=== PATIENT | female | born 1990 | race Hispanic/Latino ===

== ENCOUNTER 2017-05-10 15:24 | Emergency (ER) | payer OTHER ==
[2017-05-10 15:31] VITALS: BP 130/84
[2017-05-10] MEDS ORDERED: FLEXERIL PO ONE (15:59)
[2017-05-10] MEDS ORDERED: TORADOL IM ONE (15:59)
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
--- NOTE | 2017-05-10 17:16 | XRay Report ---
FINAL REPORT PROCEDURE: Left humerus. TECHNIQUE: AP and lateral views. HISTORY: Shoulder and arm pain. COMPARISON: No prior studies are available for comparison. FINDINGS: The bones appear intact without fracture or dislocation. The joint spaces appear normal. There is a linear foreign body that appears to be in the anteromedial soft tissues of the upper arm. This is located 6.6 centimeters above the elbow joint. This foreign body measures 4.2 centimeters in length by 1.9 millimeters in width. It could represent a catheter fragment. Clinical correlation is recommended. IMPRESSION: Normal appearing bones. Probable catheter fragment foreign body in the upper arm as described.
== END 2017-05-10 17:46 | disposition home or self-care (01) ==
LOC: ED 15:24
DX: S16.1XXA Strain of muscle, fascia and tendon at neck level, initial encounter (principal); M25.512 Pain in left shoulder; M79.622 Pain in left upper arm; F17.200 Nicotine dependence, unspecified, uncomplicated; Z95.818 Presence of other cardiac implants and grafts; Z90.49 Acquired absence of other specified parts of digestive tract; V43.62XA Car passenger injured in collision with other type car in traffic accident, initial encounter; Y93.89 Activity, other specified; Y99.8 Other external cause status; Y92.410 Unspecified street and highway as the place of occurrence of the external cause
CPT/HCPCS: 73060; 96372; 99284; J1885

== ENCOUNTER 2017-06-14 08:06 | Emergency (ER) | payer MEDICAID ==
[2017-06-14 08:10] VITALS: BP 115/81
[2017-06-14 08:48] LABS: Basophils % (Auto) 0.2 % (0.0-1.8); Eosinophils # (Auto) 0.1 K/mm3 (0.0-0.4); Eosinophils % (Auto) 0.4 % (0.0-4.3); Hematocrit 44.9 % (30.3-42.9); Hemoglobin 14.9 gm/dl (10.1-14.3); Lymphocytes # (Auto) 0.7 K/mm3 (1.2-5.4); Lymphocytes % (Auto) 5.2 % (13.4-35.0); Mean Corpuscular HGB Conc 33 % (30-34); Mean Corpuscular Hemoglobin 31 pg (28-32); Mean Corpuscular Volume 92 fl (79-97); Monocytes # (Auto) 0.6 K/mm3 (0.0-0.8); Monocytes % (Auto) 4.2 % (0.0-7.3); Platelet Count 259 K/mm3 (140-440); Red Blood Count 4.88 M/mm3 (3.65-5.03); Red Cell Distribution Width 12.7 % (13.2-15.2)
[2017-06-14 08:50] LABS: Alanine Aminotransferase 20 units/L (7-56); Albumin 4.6 g/dL (3.9-5); BUN/Creatinine Ratio 30; Blood Urea Nitrogen 12 mg/dL (7-17); Calcium 9.2 mg/dL (8.4-10.2); Hemolysis Index 10; Lipase 18 units/L (13-60)
[2017-06-14 09:03] LABS: HCG Qualitative,Urine Negative (Negative)
[2017-06-14] MEDS ORDERED: ZOFRAN IV ONE (09:03)
[2017-06-14] MEDS ORDERED: NACL 0.9% 1000 ML 1,000 ML IV ONE (09:03)
[2017-06-14 09:04] LABS: Bilirubin,Urine NEG (Negative); Blood,Urine NEG (Negative); Color,Urine Yellow (Yellow); Mucus,Urine 2+ /HPF; Protein,Urine <15 mg/dL mg/dL (Negative)
[2017-06-14] MEDS ORDERED: TORADOL IV ONE (09:05)
--- NOTE | 2017-06-14 09:06 | Emergency Department Report ---
Vomiting/Diarrhea - HPI Chief Complaint: Nausea/Vomiting/Diarrhea Stated Complaint: N&V Time Seen by Provider: 06/14/17 08:53 Duration: 2 Days Severity: severe Nausea/Vomiting Severity: Moderate Diarrhea Severity: None Pain Location: Generalized Pain Severity: Severe Symptoms: Yes Watery Diarrhea, No Bloody diarrhea, No Fever, No Able to Tolerate Fluids, No Recent Unusual Foods, No Recent Untreated Water, No Recent use of Antibiotics, No Family w/ Similar Symptoms, No Contacts w/ Similar Symptoms, No Rash, No Hematuria, No Recent URI Symptoms Other History: This is a 26 y.o. female that presents with nausea, vomiting, and diarrhea for 2 days. Patient reports generalized pain to stomach that is sharp, stabbing pain with vomiting. Pain is worse in mid abdominal region and intermittent. She is able to drink but fluids are coming back up as soon as she get them down. No other contacts in home have the same symptoms. Denies recent travel, tarry stools, recent antibiotics, fever, and recent URI. ED Review of Systems ROS: Stated complaint: N&V Other details as noted in HPI Constitutional: denies: chills, fever Respiratory: denies: cough, shortness of breath, wheezing Cardiovascular: denies: chest pain, palpitations Gastrointestinal: abdominal pain (generalized), nausea, vomiting. denies: diarrhea, constipation, hematochezia Genitourinary: denies: urgency, dysuria, frequency, discharge Neurological: denies: headache, weakness, paresthesias Psychiatric: denies: anxiety, depression ED Past Medical Hx - Past Medical History Previous Medical History?: Yes - Surgical History Past Surgical History?: Yes Hx Coronary Stent: Yes Hx Cholecystectomy: Yes Additional Surgical History: c section - Social History Smoking Status: Current Every Day Smoker - Medications Home Medications: Home Medications Medication Instructions Recorded Confirmed Last Taken Type Amoxicillin/K Clav Tab [Augmentin 1 tab PO Q12HR #14 tab 11/28/15 Unknown Rx 875 mg] HYDROcodone/APAP 7.5-325 [[place] 1 each PO Q6HR PRN #10 tablet 11/28/15 Unknown Rx 7.5/325] Sulfacetamide Sod 10% [Bleph 10] 2 drops OU Q2H #1 bottle 11/28/15 Unknown Rx Cyclobenzaprine [Flexeril] 10 mg PO QHS PRN #20 tablet 05/10/17 Unknown Rx Naproxen [Naprosyn] 500 mg PO BID #40 tablet 05/10/17 Unknown Rx Ciprofloxacin HCl [Cipro] 500 mg PO BID 7 Days #14 tablet 06/14/17 Unknown Rx Metoclopramide HCl [Reglan TAB] 5 mg PO TIDAC PRN #15 tablet 06/14/17 Unknown Rx Naproxen [Naprosyn TAB] 500 mg PO BID PRN #20 tablet 06/14/17 Unknown Rx Vomiting Diarrhea Exam - Exam General: Vital signs noted. No distress. Alert and acting appropriately. HEENT: Yes Moist Mucous Membranes, No Pharyngeal Erythema, No Pharyngeal Exudates, No Rhinorrhea, No Conjuctival Injection, No Frontal Tenderness, No Maxillary Tenderness Neck: No Adenopathy, No Rigidity Lungs: Yes Clear Lung Sounds, Yes Good Air Exchange, No Wheezes, No Stridor, No Cough, No Nasal Flaring, No Retractions, No Use of Accessory Muscles Heart exam: Regular: Yes, Murmur: No, Tachycardia: No Abdomen: Tenderness: Yes (LUQ), Peritoneal Signs: No, Distention: No, Hyperactive Bowel sounds: No Skin exam: Rash: No, Edema: No, Normal turgor: Yes Neurologic: Alert and oriented, no deficits. Musculoskeletal: Unremarkable. ED Course Vital Signs 06/14/17 08:07 Temperature 98.5 F Pulse Rate 107 H Respiratory 18 Rate Blood Pressure 115/81 O2 Sat by Pulse 98 Oximetry ED Medical Decision Making - Lab Data Result diagrams: 06/14/17 08:15 06/14/17 08:15 - Radiology Data Radiology results: report reviewed CT of abdomen: There is no acute abnormality identified. - Medical Decision Making 26 y.o. female that presents with abdominal pain, nausea and vomiting for 2 days. Patient examined by me, slightly distressed. Given zofran 4 mg IV, normal saline 1L bolus IV, and toradol 30 mg IV once in ER. Vitals stable. CT of abdomen and pelvis obtained and read by radiologist. Patient informed of There is no acute abnormality identified. Obtained CBC, CMP, UA, & HCG, WBC, H/H elevated. Start cipro and metoclopramide for gastroenteritist. Patient doesn't have PCP. Referred to [facility]. Discharged home. Follow up with [facility] in 48-72 hours. Critical care attestation.: If time is entered above; I have spent that time in minutes in the direct care of this critically ill patient, excluding procedure time. ED Disposition Clinical Impression: Gastroenteritis Disposition: [id number] TO HOME OR SELFCARE Is pt being admited?: No Does the pt Need Aspirin: No Condition: Stable Instructions: Gastroenteritis (ED), Acute Nausea and Vomiting (ED) Additional Instructions: Increase fluid intake and rest. Wash hands frequently. Continue taking naproxen, tylenol, or ibuprofen to control fever and pain. F/U with Primary Care Provider in 2-3 days. Return to ER if fever, SOB, pain to abdomen, nausea/vomiting or difficulty breathing after 48 hours of antibiotics and supportive care. Prescriptions: Ciprofloxacin HCl [Cipro] 500 mg PO BID 7 Days #14 tablet Metoclopramide HCl [Reglan TAB] 5 mg PO TIDAC PRN #15 tablet PRN Reason: Nausea And Vomiting Naproxen [Naprosyn TAB] 500 mg PO BID PRN #20 tablet PRN Reason: Pain Referrals: CHINEDU PIERRE MD [Primary Care Provider] - 3-5 Days [facility] [Outside] - 3-5 Days [facility] [Outside] - 3-5 Days [facility] [Outside] - 3-5 Days Forms: Work/School Release Form(ED) Time of Disposition: 10:48 Print Language: SLOVAK
--- NOTE | 2017-06-14 10:12 | Cat Scan Report ---
FINAL REPORT EXAM: CT ABDOMEN PELVIS WO CON HISTORY: LUQ pain, N/V TECHNIQUE: CT abdomen and pelvis performed. Images extend from diaphragm to pubic symphysis. No IV contrast was administered coronal and sagittal reformatted images were obtained. PRIORS: None. FINDINGS: The visualized aspects of the lung bases are clear. Within the limitations of a non-enhanced study, the visualized liver, spleen, pancreas, adrenal glands and kidneys demonstrate no significant abnormalities. The patient is status post cholecystectomy. There is no abdominal aortic aneurysm. There is no evidence of intestinal obstruction. The appendix is normal. There are no abnormal fluid collections seen. There is no evidence of focal or diffuse inflammatory abnormality. There is no free intraperitoneal air. The bladder is unremarkable. There is no abnormal pelvic mass or fluid collections seen. IMPRESSION: There is no acute abnormality identified.
== END 2017-06-14 10:57 | disposition home or self-care (01) ==
LOC: ED 08:06
DX: K52.9 Noninfective gastroenteritis and colitis, unspecified (principal); F17.200 Nicotine dependence, unspecified, uncomplicated
CPT/HCPCS: 36415; 74176; 80053; 81001; 81025; 83690; 85025; 96361; 96374; 96375; 99284; J1885; J2405; J7030